=== PATIENT | male | born 1970 | race Caucasian/White ===

== ENCOUNTER 2017-09-18 17:38 | Emergency (ER) | payer MEDICARE, MEDICAID ==
[2017-09-19 07:16] LABS: AGAP ISTAT 15 mmol/L (6-14); BUN ISTAT 24 mg/dL (8-26); CHLORIDE ISTAT 99 mmol/L (98-110); CREATININE ISTAT 1.1 mg/dL (0.5-1.4); GLUCOSE ISTAT 105 mg/dL (70-99); HEMATOCRIT ISTAT 43 % (37-52); HEMOGLOBIN ISTAT 14.6 g/dL (14-18); POTASSIUM ISTAT 3.7 mmol/L (3.5-5.0); SODIUM ISTAT 136 mmol/L (135-145); TOT CO2 ISTAT 26 mmol/L (23-32)
== END 2017-09-18 19:17 | disposition home or self-care (01) ==
LOC: ER 17:38
DX: R56.9 Unspecified convulsions (principal)
CPT/HCPCS: 36415; 80047; 85014; 85018; 93005; 99284-25